=== PATIENT | male | born 1965 | race Caucasian/White ===

== ENCOUNTER 2023-07-23 14:50 | Outpatient (AMB) | payer OTHER, SELFPAY ==
--- NOTE | 2023-07-23 14:53 | MHC.OFFVIS ---
Intake Vital Signs 07/23/23 15:02 Height 5 ft 10 in Weight 192 lb BMI 27.5 BP 163/99 H Blood Pressure Location Rt brachial Position Sitting Pulse 69 Pulse Source Pulse Oximeter Pulse Oximetry (%) 97 Oxygen Delivery Method Room Air Intake Visit Reasons: Neuropathy/confirmed Intake Note: Pain today 3 Candle Maker Required: No Accompanied by: Self / Same As Patient Allergies No Known Allergies Allergy (Verified 07/23/23 14:59) HPI Neuropathy/confirmed HPI Details Patient is a pleasant 58 years old male with past medical history of refill oral neuropathy, alcohol and tobacco abuse, impaired fasting glucose, hypertension, hyperlipidemia, GERD and LFT elevation presents today for initial evaluation of bilateral foot pain due to neuropathy. Patient denies any past or recent trauma, injury, or falls. The pain intensity rates at 7-8/10 in intensity and is constant. It interferes with his daily activities and functions, work, and sleeping. Patient is nondiabetic. He consumes alcohol regularly for many years and has been trying to cut down. Patient is trying to decrease smoking and states he will reach out to his PCP for Chantix. Patient states he would like to do this for his children and grandchildren. Patient is interested in topical capsaicin application for bilateral foot pain. Denies any fever, abdominal or groin pain, back pain, foot drop, weakness, bladder or bowel incontinence or saddle anesthesia. Location Bilateral feet Duration Chronic pain > 2-3 years Characteristics of symptom or complaint Burning, numbness, tingling, tiring, aching, tugging Aggravating or associated factors Movements, walking, weight bearing Relieving factors Tylenol, multivitamins, trying to decrease alcohol consumption Treatment None [facility] Medical History (Updated 07/23/23 @ 21:25 by NACHO Bhat) GERD (gastroesophageal reflux disease) Hyperlipidemia Tobacco abuse Hypertension Social History Alcohol intake: current Alcohol intake frequency: 3 or more drinks per day Alcohol type: beer and hard liquor Patient Tobacco Use Status: Current everyday Tobacco user Tobacco use type: Cigarette Cigarettes Per Day: 10 Substance Use Type: Marijuana and Caffiene Substance Use Frequency: Daily Review of Systems Const All systems reviewed & are unremarkable except as noted in HPI and below Physical Exam Vital Signs: Last Vital Signs Pulse 69 07/23/23 15:02 BP 163/99 H 07/23/23 15:02 Pulse Ox 97 07/23/23 15:02 Oxygen Delivery Method Room Air 07/23/23 15:02 BMI result Body Mass Index 27.5 General: Appears afebrile. Alert and oriented. Mood and affect appropriate. Follows and participates in conversation appropriately. Respiratory effort is unlabored. No cough. Able to transition from sit to stand unassisted. Ambulates with bilaterally normal heel strike and toe off. Skin General skin exam: no rashes or lesions noted Nails: yellow and thickened Extrem Other: There is decreased sensation over the soles of the feet and the toes. No breaks in the skin. No soft tissue swelling, no redness or warmth. General: Yes full ROM, Yes capillary refill normal, Yes no clubbing, cyanosis or edema and Yes no calf tenderness Assessment & Plan Assessment & Plan (1) Peripheral neuropathy: Code(s): G62.9 - Polyneuropathy, unspecified (2) Alcohol dependence: Code(s): F10.20 - Alcohol dependence, uncomplicated (3) Tobacco abuse: Code(s): Z72.0 - Tobacco use Plan Discuss risks and benefits of different treatment options including topical 8% capsaicin application, epidural steroid injections, and spinal cord stimulation for peripheral neuropathy. Will try to arrange topical 8% capsaicin application for bilateral foot pain as the next step once we have confirmed availability. Consider Vivitrol injections for alcohol dependence and Chantix for tobacco dependence with his PCP provider. All questions and concerns have been answered and the patient agreed with the plan. Follow up as needed. Medications: New gabapentin 10% 2 appl topical DAILY 30 days 60 grams 1RF pain G62.9 - Polyneuropathy, unspecified capsaicin 0.1% (Arthritis Pain Relief (capsaicin)) do not wash area for at least 30 min after application 1 appl topical TID 30 days 60 grams 0RF pain G62.9 - Polyneuropathy, unspecified Coding Level of Care Code New Pt Level 4 (01214) Diagnoses Peripheral neuropathy G62.9 Alcohol dependence F10.20 Tobacco abuse Z72.0
[2023-07-23 15:02] VITALS: BP 163/99; PULSE 69; O2SAT 97; BMI 27.5
== END 2023-07-23 15:31 | disposition home or self-care (01) ==
PROVIDERS: PCP Internal Medicine; Visit Provider Nurse Practitioner Family
DX: G62.9 Polyneuropathy, unspecified (principal); F10.20 Alcohol dependence, uncomplicated; Z72.0 Tobacco use
CPT/HCPCS: 99204

== ENCOUNTER → 2023-07-23 14:50 | Outpatient (BNVA) | payer OTHER, SELFPAY | PROVIDERS: PCP Internal Medicine; Visit Provider Nurse Practitioner Family ==

== ENCOUNTER 2023-08-15 08:17 | Outpatient (AMB) | payer OTHER, SELFPAY ==
--- NOTE | 2023-08-15 08:22 | MHC.OFFVIS ---
Intake Vital Signs 08/15/23 08:25 08/15/23 09:07 08/15/23 09:34 Height 5 ft 10 in Weight 193 lb 6 oz BMI 27.7 BP 134/90 H 112/83 115/82 Blood Pressure Location Lt brachial Lt brachial Lt brachial Position Sitting Sitting Sitting Pulse 63 62 67 Pulse Source Pulse Oximeter Pulse Oximeter Pulse Oximeter Pulse Oximetry (%) 97 Oxygen Delivery Method Room Air Comment 15 mins after Qutenza application 30 mins after qutenza application Intake Visit Reasons: Qutenza/Confirmed Intake Note: Pain today 02/18 Management Analyst Required: No Accompanied by: Spouse Allergies No Known Allergies Allergy (Verified 08/15/23 08:27) HPI HPI Comments History of Present Illness Details Patient presents for application of capsaicin 8% topical patch for peripheral neuropathy in bilateral feet. Denies any recent cough, cold, infection, fever or other significant changes in medical history since last office visit. PRIOR: Patient is a pleasant 58 years old male with past medical history of refill oral neuropathy, alcohol and tobacco abuse, impaired fasting glucose, hypertension, hyperlipidemia, GERD and LFT elevation presents today for initial evaluation of bilateral foot pain due to neuropathy. Patient denies any past or recent trauma, injury, or falls. The pain intensity rates at 7-8/10 in intensity and is constant. It interferes with his daily activities and functions, work, and sleeping. Patient is nondiabetic. He consumes alcohol regularly for many years and has been trying to cut down. Patient is trying to decrease smoking and states he will reach out to his PCP for Chantix. Patient states he would like to do this for his children and grandchildren. Patient is interested in topical capsaicin application for bilateral foot pain. Denies any fever, abdominal or groin pain, back pain, foot drop, weakness, bladder or bowel incontinence or saddle anesthesia. Location Bilateral feet Duration Chronic pain > 2-3 years Characteristics of symptom or complaint Burning, numbness, tingling, tiring, aching, tugging Aggravating or associated factors Movements, walking, weight bearing Relieving factors Tylenol, multivitamins, trying to decrease alcohol consumption Treatment None [facility] Medical History (Updated 08/15/23 @ 09:05 by NACHO Bhat) Bilateral foot pain GERD (gastroesophageal reflux disease) Hyperlipidemia Tobacco abuse Hypertension Social History Alcohol intake: current Alcohol intake frequency: 3 or more drinks per day Alcohol type: beer and hard liquor Patient Tobacco Use Status: Current everyday Tobacco user Tobacco use type: Cigarette Cigarettes Per Day: 10 Substance Use Type: Marijuana and Caffiene Review of Systems Const All systems reviewed & are unremarkable except as noted in HPI and below Physical Exam Vital Signs: Last Vital Signs Pulse 62 08/15/23 09:07 BP 112/83 08/15/23 09:07 Pulse Ox 97 08/15/23 08:25 Oxygen Delivery Method Room Air 08/15/23 08:25 BMI result Body Mass Index 27.7 General: Appears afebrile. Alert and oriented. Mood and affect appropriate. Follows and participates in conversation appropriately. Respiratory effort is unlabored. No cough. Able to transition from sit to stand unassisted. Ambulates with bilaterally normal heel strike and toe off. Skin General skin exam: no rashes or lesions noted Nails: yellow and thickened Extrem Other: There is decreased sensation over the soles of the feet and the toes. No breaks in the skin. No soft tissue swelling, no redness or warmth. Full ROM. Normal capillary refill. No clubbing, cyanosis or edema. No calf tenderness. Pulses +2 throughout bilaterally. Office Procedures Topical Capsaicin Date 1:: 08/15/23 Main area of pain on the body: Bilateral feet and toes Laterality: Bilateral Location of left foot pain: Anterior, Posterior, Plantar and Dorsal Location of right foot pain: Anterior, Posterior, Plantar and Dorsal Quality of pain: Aching, Nagging, Burning, Numb-like and Tiring Details:: Two patches, 560 cm2 were utilized per each foot. EMLA Cream (lidocaine 2.5% and prilocaine 2.5%) was applied at home by patient prior to application of the patches. The patient tolerated the procedure well. Patient?s vitals signs remained stable throughout the procedure. Patient was able to complete the stipulated 30 minutes of the therapeutic application without any discomfort. Office Meds capsaicin-skin cleanser 8 % topical kit Performing Provider: NACHO Bhat Performing Location: [facility] Administered by: NACHO Bhat on 08/15/23 08:47 Dose Route Admin Location Dispensed Lot Number Expiration Date [facility] [place][NOTE 3] [employer] Se[employer] 4 ea topical [facility] 4 ea [id number] 02/09/26 [id number] Assessment & Plan Assessment & Plan (1) Peripheral neuropathy: Code(s): G62.9 - Polyneuropathy, unspecified (2) Bilateral foot pain: Code(s): M79.671 - Pain in right foot; M79.672 - Pain in left foot Plan Patient is status post 1st round of application of topical capsaicin 8% for peripheral neuropathy in bilateral feet. Patient tolerated the procedure without significant discomfort with application of EMLA cream prior to the procedure. Patient was discharged home in stable condition with discharge instructions. All questions and concerns were answered and the patient agreed with the plan. Greater than 35 minutes were spent in seeing the patient, reviewing and documenting in medical record, therapeutic application, and in coordination of the care. Orders: Orders AMB Capsaicin Patch - Practice Supplied Today G62.9 - Polyneuropathy, unspecified Coding Level of Care Code Est Pt Level 4 (03834) Diagnoses Peripheral neuropathy G62.9 Bilateral foot pain M79.671; M79.672
[2023-08-15 08:25] VITALS: BP 134/90; PULSE 63; O2SAT 97; BMI 27.7
[2023-08-15 09:07] VITALS: BP 112/83; PULSE 62
[2023-08-15 09:34] VITALS: BP 115/82; PULSE 67
== END 2023-08-15 09:31 | disposition home or self-care (01) ==
PROVIDERS: PCP Internal Medicine; Visit Provider Nurse Practitioner Family
DX: G62.9 Polyneuropathy, unspecified (principal); M79.671 Pain in right foot; M79.672 Pain in left foot
CPT/HCPCS: 17999; 99214

== ENCOUNTER → 2023-08-15 08:17 | Outpatient (BNVA) | payer OTHER, SELFPAY | PROVIDERS: PCP Internal Medicine; Visit Provider Nurse Practitioner Family | DX: G62.9 Polyneuropathy, unspecified (principal); M79.671 Pain in right foot; M79.672 Pain in left foot | CPT/HCPCS: 17999; J7336 ==